=== PATIENT | male | born 1985 | race Caucasian/White ===

== ENCOUNTER → 2017-01-20 | Outpatient (CLI) | payer BC ==
[~2017-01-20] MED LIST: HYDROCODONE/APAP
== END ==
LOC: MHCPAIN 09:36
DX: G89.29 Other chronic pain (principal); M47.817 Spondylosis without myelopathy or radiculopathy, lumbosacral region; M54.16 Radiculopathy, lumbar region; M53.3 Sacrococcygeal disorders, not elsewhere classified; M96.1 Postlaminectomy syndrome, not elsewhere classified
CPT/HCPCS: G0463

== ENCOUNTER → 2017-05-07 | Outpatient (CLI) | payer BC | LOC: MHCPAIN 10:35 | DX: G89.29 Other chronic pain (principal); M47.27 Other spondylosis with radiculopathy, lumbosacral region; M96.1 Postlaminectomy syndrome, not elsewhere classified | CPT/HCPCS: G0463 ==

== ENCOUNTER → 2017-08-03 | Outpatient (CLI) | payer BC | LOC: MHCPAIN 12:54 | DX: G89.29 Other chronic pain (principal); M47.27 Other spondylosis with radiculopathy, lumbosacral region; M53.3 Sacrococcygeal disorders, not elsewhere classified; M96.1 Postlaminectomy syndrome, not elsewhere classified | CPT/HCPCS: G0463 ==

== ENCOUNTER → 2017-08-12 | Outpatient (CLI) | payer BC | LOC: MHCPAIN 09:32 | DX: M51.16 Intervertebral disc disorders with radiculopathy, lumbar region (principal); M96.1 Postlaminectomy syndrome, not elsewhere classified; M51.26 Other intervertebral disc displacement, lumbar region; M48.061 Spinal stenosis, lumbar region without neurogenic claudication | CPT/HCPCS: J1040; Q9967 ==

== ENCOUNTER → 2017-09-28 | Outpatient (CLI) | payer BC | LOC: MHCPAIN 13:02 | DX: G89.29 Other chronic pain (principal); M47.817 Spondylosis without myelopathy or radiculopathy, lumbosacral region; M54.16 Radiculopathy, lumbar region; M53.3 Sacrococcygeal disorders, not elsewhere classified; M96.1 Postlaminectomy syndrome, not elsewhere classified | CPT/HCPCS: G0463 ==

== ENCOUNTER → 2017-11-30 | Outpatient (CLI) | payer OTHER, BC | LOC: MHCPAIN 15:06 | DX: G89.29 Other chronic pain (principal); M47.817 Spondylosis without myelopathy or radiculopathy, lumbosacral region; M54.16 Radiculopathy, lumbar region; M53.3 Sacrococcygeal disorders, not elsewhere classified; M96.1 Postlaminectomy syndrome, not elsewhere classified | CPT/HCPCS: G0463 ==

== ENCOUNTER → 2017-12-30 | Outpatient (CLI) | payer OTHER ==
[~2017-12-30] MED LIST changes: +CIALIS20 MG PO; +CYMBALTA 60MG60 MG PO; +NEURONTIN600 MG/TAB PO; +NORVASC2.5 MG PO; +PERCOCET 325 MG1 TA2 PO; +VITAMIN D 1001000 IU PO; +ZANAFLEX2 MG PO; +ZESTRIL 20MG TA20 MG PO
[2017-12-30 15:10] LABS: COLLECTION METHOD CLEAN CATCH
[2017-12-30 15:15] LABS: HEMATOCRIT 40.1 % (42.0-52.0); HEMOGLOBIN 14.4 g/dl (13.5-18.0); MEAN CELL VOLUME 88 fl (80.0-100.0); MEAN CORPUSCULAR HEMOGLOBIN 32 pg (27.0-31.0); MEAN CORPUSCULAR HGB CONC 36 g/dl (33.0-37.0); MEAN PLATELET VOLUME 10.6 fl (7.4-10.4); PLATELET COUNT 166 K/mm3 (130-400); RED BLOOD COUNT 4.57 M/mm3 (4.20-5.60); REDCELL DISTRIBUTION WIDTH-CV 13.3 % (11.5-14.5)
[2017-12-30 15:19] LABS: MUCOUS Present /lpf; PH 5 (5-8); SQUAMOUS EPITHELIAL 0-2 /hpf; URINE APPEARANCE Hazy; URINE BACTERIA Rare /hpf; URINE BILIRUBIN Negative (NEGATIVE); URINE BLOOD Negative (NEGATIVE); URINE COLOR Yellow; URINE GLUCOSE Negative (NEGATIVE); URINE KETONE Negative (NEGATIVE); URINE LEUKOCYTE ESTERASE 2+ (NEGATIVE); URINE NITRATE Positive (NEGATIVE); URINE PROTEIN(semi-quant) 2+ (NEGATIVE); URINE UROBILINOGEN Negative (NEGATIVE); URINE WBC >50 /hpf
[2017-12-30 15:29] LABS: ALBUMIN 3.8 gm/dL (3.5-5.0); BILIRUBIN,TOTAL 0.8 mg/dL (0.0-1.0); CALCIUM 9.3 mg/dL (8.4-10.2); CREATININE, serum 1.06 mg/dL (0.66-1.25); POTASSIUM 4.6 mmol/L (3.4-5.0)
[2017-12-30 15:34] LABS: C-REACTIVE PROTEIN 0.5 mg/dL (0.0-0.9)
[2017-12-30 15:40] LABS: ERYTHROCYTE SEDIMENTATION RATE 4 mm/hr (0-15)
== END ==
LOC: COL.LAB 14:47
PROVIDERS: Anesthesiology Pain Medicine
DX: M96.1 Postlaminectomy syndrome, not elsewhere classified (principal)

== ENCOUNTER 2017-12-31 09:36 | Day surgery (SDC) | payer OTHER ==
[~2017-12-31] VITALS: Ht 172.7 cm; Wt 138.6 kg
[~2017-12-31 09:36] MED LIST changes: -NORVASC2.5 MG PO; -VITAMIN D 1001000 IU PO
[2017-12-31] MEDS ORDERED: NORVASC2.5 MG PO (09:56)
[2017-12-31 10:02] VITALS: BP 135/87; PULSE 79; TEMP 98.1
[2017-12-31] MEDS ORDERED: VITAMIN D 1001000 IU PO (10:09)
[2017-12-31 12:50] VITALS: BP 143/72; PULSE 76; TEMP 98
[2017-12-31 13:05] VITALS: BP 131/62; PULSE 74
[2017-12-31 13:20] VITALS: BP 119/63; PULSE 86
[2017-12-31 13:35] VITALS: BP 128/77; PULSE 77
== END 2017-12-31 14:10 | disposition home or self-care (01) ==
LOC: SDCO 09:36
DX: M96.1 Postlaminectomy syndrome, not elsewhere classified (principal); N31.9 Neuromuscular dysfunction of bladder, unspecified; Z79.899 Other long term (current) drug therapy; I10 Essential (primary) hypertension; E66.01 Morbid (severe) obesity due to excess calories; Z90.5 Acquired absence of kidney; G47.33 Obstructive sleep apnea (adult) (pediatric); K21.9 Gastro-esophageal reflux disease without esophagitis
CPT/HCPCS: C1778; J0690; J2250; J2704; J3010; J7120

== ENCOUNTER → 2018-01-05 | Outpatient (CLI) | payer OTHER ==
[~2018-01-05] MED LIST changes: +NORVASC2.5 MG PO; +VITAMIN D 1001000 IU PO
== END ==
LOC: COL.RAD 08:27
DX: Z46.2 Encounter for fitting and adjustment of other devices related to nervous system and special senses (principal); Z96.89 Presence of other specified functional implants

== ENCOUNTER → 2018-01-05 | Outpatient (CLI) | payer OTHER | LOC: MHCPAIN 09:51 | DX: G89.29 Other chronic pain (principal); M47.817 Spondylosis without myelopathy or radiculopathy, lumbosacral region; M54.16 Radiculopathy, lumbar region; M53.3 Sacrococcygeal disorders, not elsewhere classified; M96.1 Postlaminectomy syndrome, not elsewhere classified | CPT/HCPCS: G0463 ==

== ENCOUNTER → 2018-02-01 | Outpatient (CLI) | payer OTHER ==
[2018-02-01 14:40] LABS: ALBUMIN 3.9 gm/dL (3.5-5.0); CALCIUM 9.4 mg/dL (8.4-10.2); CREATININE, serum 0.98 mg/dL (0.66-1.25); POTASSIUM 4.2 mmol/L (3.4-5.0)
== END ==
LOC: COL.LAB 13:52
PROVIDERS: Anesthesiology Pain Medicine
DX: N18.1 Chronic kidney disease, stage 1 (principal); R80.8 Other proteinuria

== ENCOUNTER → 2018-02-08 | Outpatient (CLI) | payer OTHER | LOC: COL.LAB 13:40 | DX: Z01.818 Encounter for other preprocedural examination (principal) ==

== ENCOUNTER → 2018-02-08 | Outpatient (CLI) | payer OTHER ==
[2018-02-08 14:32] LABS: CALCIUM 9.5 mg/dL (8.4-10.2); CREATININE, serum 0.92 mg/dL (0.66-1.25); POTASSIUM 4.4 mmol/L (3.4-5.0)
[2018-02-10 16:06] LABS: URINE TOTAL VOLUME 1950 mL
== END ==
LOC: COL.LAB 13:38
PROVIDERS: Internal Medicine Nephrology
DX: R80.8 Other proteinuria (principal); N18.1 Chronic kidney disease, stage 1

== ENCOUNTER 2018-03-01 11:46 | Day surgery (SDC) | payer OTHER ==
[~2018-03-01] VITALS: Ht 175.3 cm; Wt 142.2 kg
[2018-03-01 13:25] VITALS: BP 134/80; PULSE 82; TEMP 98.5
[2018-03-01 17:35] VITALS: BP 115/60; PULSE 70; TEMP 97.3
[2018-03-01 17:50] VITALS: BP 129/72; PULSE 64
[2018-03-01 18:05] VITALS: BP 113/53; PULSE 57
== END 2018-03-01 18:23 | disposition home or self-care (01) ==
LOC: SDCO 11:46
DX: R33.9 Retention of urine, unspecified (principal); R32 Unspecified urinary incontinence; G83.4 Cauda equina syndrome; I10 Essential (primary) hypertension; G47.33 Obstructive sleep apnea (adult) (pediatric); K21.9 Gastro-esophageal reflux disease without esophagitis; F32.9 Major depressive disorder, single episode, unspecified; F41.9 Anxiety disorder, unspecified; G89.29 Other chronic pain; Z90.5 Acquired absence of kidney; Z88.8 Allergy status to other drugs, medicaments and biological substances; Z82.49 Family history of ischemic heart disease and other diseases of the circulatory system; Z84.1 Family history of disorders of kidney and ureter; Z82.3 Family history of stroke
CPT/HCPCS: C1767; C1778; C1787; C1894; J2250; J2704; J3010; J7030

== ENCOUNTER → 2018-03-01 | Outpatient (CLI) | payer BC ==
[~2018-03-01] MED LIST changes: +NORVASC 5MG5 MG/TAB PO; -NORVASC2.5 MG PO
[2018-03-02 01:34] LABS: COMPLEMENT-C3 165 mg/dL (79-152); COMPLEMENT-C4 44 mg/dL (18-55)
[2018-03-02 23:44] LABS: ANA SCREEN with REFLEX Negative (Negative)
[2018-03-03 13:14] LABS: LAMDA FREE LIGHT CHAIN SERUM 1.48 mg/dL (())
== END ==
LOC: COL.LAB 12:00
PROVIDERS: Internal Medicine Nephrology
DX: N18.1 Chronic kidney disease, stage 1 (principal); R80.8 Other proteinuria

== ENCOUNTER → 2018-03-07 | Outpatient (CLI) | payer BC | LOC: MHCPAIN 10:18 | DX: G89.29 Other chronic pain (principal); M47.817 Spondylosis without myelopathy or radiculopathy, lumbosacral region; M54.16 Radiculopathy, lumbar region; M53.3 Sacrococcygeal disorders, not elsewhere classified; M96.1 Postlaminectomy syndrome, not elsewhere classified | CPT/HCPCS: G0463 ==

== ENCOUNTER → 2018-03-07 | Outpatient (CLI) | payer OTHER | LOC: COL.LAB 13:38 | DX: N39.0 Urinary tract infection, site not specified (principal) ==

== ENCOUNTER → 2018-03-29 | Outpatient (CLI) | payer OTHER | LOC: ZCOL.LAB 17:50 | DX: N39.0 Urinary tract infection, site not specified (principal) ==

== ENCOUNTER → 2018-03-29 | Outpatient (CLI) | payer OTHER | LOC: MHCPAIN 15:30 | DX: G89.29 Other chronic pain (principal); M47.817 Spondylosis without myelopathy or radiculopathy, lumbosacral region; M54.16 Radiculopathy, lumbar region; M53.3 Sacrococcygeal disorders, not elsewhere classified; M96.1 Postlaminectomy syndrome, not elsewhere classified | CPT/HCPCS: G0463 ==

== ENCOUNTER 2018-07-06 09:09 | Outpatient (CLI) | payer OTHER ==
[~2018-07-06 09:09] MED LIST changes: +HCTZ12.5TAB PO
[2018-07-06 09:47] VITALS: BP 156/79; PULSE 95
[2018-07-06 10:45] VITALS: BP 139/83; PULSE 83
[2018-07-06 11:00] VITALS: BP 125/82; PULSE 82
[2018-07-06 11:15] VITALS: BP 121/81; PULSE 84
[2018-07-06 11:45] VITALS: BP 125/84; PULSE 86
[2018-07-06 12:14] VITALS: BP 127/86; PULSE 88
== END 2018-07-06 12:37 | disposition home or self-care (01) ==
LOC: COL.RAD 09:09
DX: M96.1 Postlaminectomy syndrome, not elsewhere classified (principal); M54.16 Radiculopathy, lumbar region; N39.0 Urinary tract infection, site not specified; M53.3 Sacrococcygeal disorders, not elsewhere classified; M47.817 Spondylosis without myelopathy or radiculopathy, lumbosacral region; M48.061 Spinal stenosis, lumbar region without neurogenic claudication; M43.06 Spondylolysis, lumbar region; Z96.9 Presence of functional implant, unspecified; Z90.5 Acquired absence of kidney

== ENCOUNTER → 2018-09-27 | Outpatient (CLI) | payer OTHER, MEDICARE | LOC: MHCPAIN 12:47 | DX: G89.29 Other chronic pain (principal); M47.817 Spondylosis without myelopathy or radiculopathy, lumbosacral region; M54.16 Radiculopathy, lumbar region; M53.3 Sacrococcygeal disorders, not elsewhere classified; M96.1 Postlaminectomy syndrome, not elsewhere classified | CPT/HCPCS: G0463 ==

== ENCOUNTER → 2020-02-05 | Outpatient (CLI) | payer OTHER, MEDICARE | LOC: MHCPAIN 09:54 | DX: M47.817 Spondylosis without myelopathy or radiculopathy, lumbosacral region (principal); M54.5 Low back pain; M53.3 Sacrococcygeal disorders, not elsewhere classified; G89.29 Other chronic pain; M54.16 Radiculopathy, lumbar region; M96.1 Postlaminectomy syndrome, not elsewhere classified | CPT/HCPCS: G0463 ==

== ENCOUNTER → 2020-02-13 | Outpatient (CLI) | payer OTHER, MEDICARE | LOC: MHCPAIN 10:30 | DX: M54.5 Low back pain (principal); M54.6 Pain in thoracic spine | CPT/HCPCS: J1040 ==

== ENCOUNTER 2023-12-30 10:29 | Day surgery (SDC) | payer MEDICARE ==
[~2023-12-30] VITALS: Ht 175.3 cm; Wt 133.0 kg
[2023-12-30] VITALS (10 sets, daily range): BP systolic 130–158; BP diastolic 58–87; PULSE 56–83; TEMP 97.5–98.4
[~2023-12-30 10:29] MED LIST changes: +LR 1,000 ML IV SCH
[2023-12-30] MEDS ORDERED: Glycopyrrolate 0.2 MG/ML 1 ML VIAL ONE (11:44)
[2023-12-30] MEDS ORDERED: NS 10 ML IV ONE (11:44)
[2023-12-30] MEDS ORDERED: dexAMETHasone 10 MG/ML VIAL ONE (11:44)
[2023-12-30] MEDS ORDERED: fentaNYL 50 MCG/ML 2 ML VIAL ONE ×2 (11:44→13:19)
[2023-12-30] MEDS ORDERED: Ondansetron 4 MG/2 ML VIAL ONE (11:44)
[2023-12-30] MEDS ORDERED: Lidocaine PF 2% (20 MG/ML) 5 ML VIAL ONE (11:44)
[2023-12-30] MEDS ORDERED: PRINIVIL40 MG PO (11:46)
[2023-12-30] MEDS ORDERED: Succinylcholine PF 200 MG/10 ML SYRINGE IV ONE (11:47)
[2023-12-30] MEDS ORDERED: HCTZ 25MG TAB25 MG PO (11:47)
[2023-12-30] MEDS ORDERED: Rocuronium 50 MG/5 ML Multi-Dose VIAL ONE (11:48)
[2023-12-30] MEDS ORDERED: PROTONIX 40MG T40 MG PO (11:54)
[2023-12-30] MEDS ORDERED: LYRICA 75MG CAP75 MG PO (11:55)
[2023-12-30] MEDS ORDERED: XANAX 0.5MG0.5 MG PO (11:56)
[2023-12-30] MEDS ORDERED: Topical Skin Adhesive 1 EACH (1 ML) TOP ONE (12:00)
[2023-12-30] MEDS ORDERED: Morphine 2 MG/1 ML VIAL [PACU/SDC ONLY] IV PRN (12:15)
[2023-12-30] MEDS ORDERED: Ondansetron 4 MG/2 ML VIAL IV PRN ×2 (12:15→14:45)
[2023-12-30] MEDS ORDERED: fentaNYL 50 MCG/ML 1 ML SYRINGE/VIAL [PACU/SDC ONLY] IV PRN (12:15)
[2023-12-30] MEDS ORDERED: HYDROmorphone 1 MG/1 ML SYRINGE [PACU/SDC ONLY] IV PRN (12:15)
[2023-12-30] MEDS ORDERED: Meperidine 50 MG/ML 1 ML VIAL IV PRN (12:15)
[2023-12-30] MEDS ORDERED: LR 1,000 ML IV SCH (14:45)
[2023-12-30] MEDS ORDERED: HYDROmorphone 0.5 MG/0.5 ML SYRINGE IV PRN (14:45)
[2023-12-30] MEDS ORDERED: oxyCODONE 5 MG TAB PO PRN (14:45)
[2023-12-30] MEDS ORDERED: Promethazine 25 MG TAB PO PRN (14:45)
[2023-12-30] MEDS ORDERED: Naloxone 0.4 MG/ML VIAL IV PRN (14:45)
[2023-12-30] MEDS ORDERED: ALPRAZolam 0.5 MG TAB PO PRN (15:00)
--- NOTE | 2023-12-30 15:25 | NUR ---
PATIENT ARRIVED TO FLOOR AT 1525 FROM PACU. VSS. 6 INSCISION SITES CLOSED WITH SURICAL GLUE, TOP INSCISION COVERED WITH BANDAID. PATIENT AWAKE AND A&OX4 STATES GAS PAIN IN LFT SHOULDER AND CHEST, WARM BLANKET APPLIED. PATIENT ALSO GIVEN WATER AND JELLO, TOLERATED WELL. NO OTHER REQUEST OR CONCERNS AT THIS TIME.
--- NOTE | 2023-12-30 16:30 | NUR ---
PATIENT REQUESTING TO GET UP AND WALK THE [place] TO HELP GAS PAIN IN LFT SHOULDER. WALKED ABOUT 20 FEET AND TOLERATED WELL. PATIENT NOW SITTING IN RECLINER WITH FAMILY AT BEDSIDE. CALL LIGHT IN REACH
[2023-12-30] MEDS ORDERED: Acetaminophen 500 MG TAB PO SCH (18:00)
[2023-12-30] MEDS ORDERED: Pregabalin 75 MG CAP PO SCH (21:00)
--- NOTE | 2023-12-30 22:40 | NUR ---
PATIENT SITTING UP IN CHAIR. STATES HIS ABDOMINAL PAIN IS ABOUT 6/10 AND REQUESTING SOMETHING FOR PAIN. ALSO STATES HE HAS NOT PASSED ANY GAS SINCE SURGERY, BOWEL SOUNDS ARE AUDIBLE HOWEVER HYPOACTIVE. DENIES ANY NAUSEA. CALL LIGHT IS WITHIN REACH.
[2023-12-31] VITALS: BP 155/82; PULSE 61; TEMP 98.1
[2023-12-31 04:00] VITALS: BP 129/63; PULSE 63; TEMP 97.5
[2023-12-31 06:46] LABS: BASO % 0.1 % (0.0-2.0); GRAN # 6.4 K/mm3 (1.4-6.5); GRAN % 86.6 % (42.2-75.2); HEMOGLOBIN 12.9 g/dl (13.5-18.0); LYMPH # 0.6 K/mm3 (1.2-3.4); LYMPH % 8.1 % (20.0-51.0); MEAN CELL VOLUME 86 fl (80.0-100.0); MEAN CORPUSCULAR HEMOGLOBIN 31 pg (27-31); MEAN CORPUSCULAR HGB CONC 36 g/dl (33.0-37.0); MEAN PLATELET VOLUME 11.5 fl (7.4-10.4); MONO # 0.4 K/mm3 (0.1-0.6); MONO % 4.8 % (1.7-9.3); PLATELET COUNT 131 K/mm3 (130-400); RED BLOOD COUNT 4.21 M/mm3 (4.20-5.60); REDCELL DISTRIBUTION WIDTH-CV 13.3 % (11.5-14.5)
[2023-12-31 06:57] LABS: HEMATOCRIT 36.3 % (42.0-52.0)
[2023-12-31 07:08] LABS: CALCIUM 9.8 mg/dL (8.4-10.2); CREATININE, serum 1.13 mg/dL (0.72-1.25); MAGNESIUM 1.7 mg/dL (1.6-2.6); PHOSPHOROUS 3.8 mg/dL (2.3-4.7); POTASSIUM 4.3 mEq/L (3.5-4.5)
[2023-12-31] MEDS ORDERED: Lisinopril 20 MG TAB PO SCH (09:00)
[2023-12-31] MEDS ORDERED: hydroCHLOROthiazide 25 MG TAB PO SCH (09:00)
[2023-12-31 09:34] VITALS: BP 129/76; PULSE 56; TEMP 97.8
--- NOTE | 2023-12-31 09:35 | NUR ---
Initial visit; Patient and thanked Branch Associate Teller for looking in on him this morning and wishing him well. Patient states he is doing well, everything is fine and he has no spiritual needs at this time. Branch Associate Teller wished both of them well. They are very pleasant people.
[2023-12-31] MEDS ORDERED: Docusate Sodium 100 MG CAP PO SCH (09:52)
--- NOTE | 2023-12-31 10:06 | NUR ---
SHIFT ASSESSMENT COMPLETE. VSS. PATIENT UP IN RECLINER WITH AT BEDSIDE. PATIENT HAS BEEN WAKING ABOUT EVERY HOUR AND STATES GAS PAINS HAS IMPROVED FROM LAST NIGHT.LR RUNNING 75ML/HR. PATIENT STATES PAIN 2/10 AND NO PAIN MEDS REQUESTED AT THIS TIME. 5 OF THE 6 LAP SITES CDI, THE TOP LAP SITE IS DRAINING MINIMAL W/ BANDAID IN PLACE AND THE OTHER FIVE HAVE JUST SKIN GLUE. PATIENT HAS NO REQUEST OR CONCERNS AT THIS TIME. CALL LIGHT IN REACH.
[2023-12-31 11:47] VITALS: BP 113/70; PULSE 61; TEMP 98.3
--- NOTE | 2023-12-31 13:49 | NUR ---
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 He reports to live with his in [place]. He sees Dr. Harris and obtains medications from [facility] with no difficulties. He reports to be independent with ADLS and uses a CPAP, cane, and wheelchair for DME due to reported spinal injuries. He does not have a DPOA-HC and was informed his is NOK. No further needs. Discharge Plan: home
[2023-12-31] MEDS ORDERED: COLACE 100100 MG/CAP PO (14:14)
[2023-12-31] MEDS ORDERED: ROXICODONE 55 MG/TAB PO (14:14)
== END 2023-12-31 15:12 | disposition home or self-care (01) ==
LOC: SDCO 10:29 → SURG 16:20 → SDCO 12-31 15:12
PROVIDERS: Surgery
DX: K21.9 Gastro-esophageal reflux disease without esophagitis (principal); K44.9 Diaphragmatic hernia without obstruction or gangrene; K64.1 Second degree hemorrhoids; G47.33 Obstructive sleep apnea (adult) (pediatric); Z87.891 Personal history of nicotine dependence; Z99.89 Dependence on other enabling machines and devices
CPT/HCPCS: OP; A9284; J0690; J1100; J1650; J2405; J2704; J3010; J7120

== ENCOUNTER → 2024-02-08 | Outpatient (CLI) | payer MEDICARE ==
[~2024-02-08] MED LIST changes: +COLACE 100100 MG/CAP PO; +HCTZ 25MG TAB25 MG PO; -LR 1,000 ML IV SCH; +LYRICA 75MG CAP75 MG PO; +PRINIVIL40 MG PO; +PROTONIX 40MG T40 MG PO; +ROXICODONE 55 MG/TAB PO; +XANAX 0.5MG0.5 MG PO
== END ==
LOC: COL.RAD 12:18
DX: K21.9 Gastro-esophageal reflux disease without esophagitis (principal); K22.4 Dyskinesia of esophagus; Z98.890 Other specified postprocedural states